=== PATIENT | male | born 1980 | race Caucasian/White ===

== ENCOUNTER 2019-02-12 19:48 | Emergency (ER) | payer MEDICARE, MEDICAID ==
[~2019-02-12] VITALS: Ht 172.7 cm; Wt 154.5 kg
[~2019-02-12 19:48] MED LIST: ELAVIL25 MG PO; HYDROCHLOROTH12.5 M1 PO; HYDROCODONE-APA1 TAB PO; PRINIVIL20 MG PO; PROZAC20 MG PO
[2019-02-12 20:18] VITALS: Ht 172.7 cm; Wt 154.5 kg
[2019-02-12] MEDS ORDERED: BUPROPION XL300 MG PO (20:22)
[2019-02-12] MEDS ORDERED: KLONOPIN1 MG PO (20:22)
[2019-02-12] MEDS ORDERED: OMEPRAZOLE40 MG PO (20:22)
[2019-02-12] MEDS ORDERED: CYCLOBENZAPRINE10 MG PO (20:23)
[2019-02-12 21:10] LABS: BASOPHILS 0.3 % (0-2); EOSINOPHILS 2.6 % (0-7); HEMOGLOBIN 13.4 g/dL (13.5-17.5); IMMATURE GRANULOCYTES 0.3 % (0-5); LYMPHOCYTES 19.9 % (15-50); MCH 29.7 pg (26.0-34.0); MCHC 32.7 g/dL (31.0-37.0); MCV 90.9 fL (80.0-100.0); MEAN PLATELET VOLUME 8.1 fL (7.4-10.4); MONOCYTES 6.9 % (2-11); PLATELET COUNT 349 10x3/uL (130-400); RBC 4.51 10x6/uL (4.20-6.10); RDW 13.8 % (11.5-14.5); WBC 15.9 10x3/uL (4.8-10.8)
[2019-02-12 21:13] LABS: APTT 38.4 SECONDS (22.8-39.4); INR 1.06 (0.85-1.17); PROTIME 13.3 SECONDS (11.6-15.0)
[2019-02-12 21:14] LABS: CALC OSMOLALITY 273 mosm/kg (275-300); CALCIUM 8.4 mg/dL (8.5-10.1); CARBON DIOXIDE 27.7 mmol/L (21.0-32.0); CHLORIDE - SERUM 101 mmol/L (98-107); CREATININE - SERUM 1.1 mg/dL (0.6-1.3); D-DIMER-QUANTITATIVE 0.5 ug/mLFEU (0.20-0.54); GLUCOSE 85 mg/dL (74-106); POTASSIUM - SERUM 3.7 mmol/L (3.5-5.1); SODIUM 138 mmol/L (136-145); UREA NITROGEN 9 mg/dL (7-18); eGFR NON AFRICAN AMERICAN 79 mL/min (90-120)
[2019-02-12 21:31] LABS: ALBUMIN 3.3 g/dL (3.4-5.0); ALKALINE PHOSPHATASE 99 U/L (46-116); ALT (SGPT) 30 U/L (10-68); BILIRUBIN - TOTAL 0.36 mg/dL (0.2-1.3); CKMB 0.9 U/L (0.0-3.6); CREATINE KINASE 109 UL (21-232); MAGNESIUM - SERUM 1.7 mg/dL (1.8-2.4); PRO BNP 101 pg/mL (0-125); PROTEIN - SERUM 7.3 g/dL (6.4-8.2); THYROID STIMULATING HORMONE 2.49 uIU/mL (0.36-3.74); TROPONIN-I < 0.017 ng/mL (0.000-0.060)
[2019-02-12 21:37] LABS: UDS - AMPHET NEGATIVE QUAL (NEGATIVE); UDS - BARB NEGATIVE QUAL (NEGATIVE); UDS - BENZO NEGATIVE QUAL (NEGATIVE); UDS - COCAINE NEGATIVE QUAL (NEGATIVE); UDS - OPIATE POSITIVE QUAL (NEGATIVE); UDS - PCP NEGATIVE QUAL (NEGATIVE); UDS - THC NEGATIVE QUAL (NEGATIVE)
[2019-02-12 21:39] LABS: APPEARANCE CLEAR (CLEAR); BILIRUBIN NEGATIVE (NEGATIVE); COLOR YELLOW (YELLOW); GLUCOSE NEGATIVE (NEGATIVE); KETONE NEGATIVE (NEGATIVE); NITRITE NEGATIVE (NEGATIVE); PROTEIN NEGATIVE (NEGATIVE); SPECIFIC GRAVITY 1.015 (1.005-1.020); UROBILINOGEN NORMAL (NORMAL)
[2019-02-12 23:11] VITALS: BP 118/73
== END 2019-02-12 23:12 | disposition home or self-care (01) ==
LOC: D.ER 19:48
PROVIDERS: Family Medicine
DX: R06.00 Dyspnea, unspecified (principal); I10 Essential (primary) hypertension; M54.9 Dorsalgia, unspecified

== ENCOUNTER 2019-03-29 15:10 | Emergency (ER) | payer MEDICARE, MEDICAID ==
[~2019-03-29] VITALS: Ht 172.7 cm; Wt 156.8 kg
[~2019-03-29 15:10] MED LIST changes: +BUPROPION XL300 MG PO; +CYCLOBENZAPRINE10 MG PO; +KLONOPIN1 MG PO; +OMEPRAZOLE40 MG PO
[2019-03-29 15:13] VITALS: Ht 172.7 cm; Wt 156.8 kg
[2019-03-29] MEDS ORDERED: MEDROL DOSE PACK4 MG PO (16:36)
[2019-03-29 17:15] VITALS: BP 160/89
== END 2019-03-29 17:15 | disposition home or self-care (01) ==
LOC: D.ER 15:10
DX: S13.4XXA Sprain of ligaments of cervical spine, initial encounter (principal); M62.838 Other muscle spasm; G62.9 Polyneuropathy, unspecified; I10 Essential (primary) hypertension; G93.5 Compression of brain